=== PATIENT | male | born 1940 | race Caucasian/White ===

== ENCOUNTER → 2016-07-12 | Outpatient (CLI) | payer OTHER | END | disposition home or self-care (01) | LOC: PCVCCLINIC 09:40 | PROVIDERS: ATTEND Internal Medicine | DX: I25.10 Atherosclerotic heart disease of native coronary artery without angina pectoris (principal); I25.5 Ischemic cardiomyopathy; I10 Essential (primary) hypertension; E78.00 Pure hypercholesterolemia, unspecified; I47.2 Ventricular tachycardia; I48.91 Unspecified atrial fibrillation; I73.9 Peripheral vascular disease, unspecified | CPT/HCPCS: 80061; 93005; G0463 ==

== ENCOUNTER → 2017-01-13 | Outpatient (CLI) | payer OTHER ==
--- NOTE | 2017-01-13 10:20 | PCVCIMAG ---
APPROVED REPORT Study performed: 01/13/2017 08:51:01 EXAM: Comprehensive 2D, Doppler, and color-flow Echocardiogram Other Information Study Quality: Technically Limited Indications CAD Hypertension/HDD CABG, Defib, Sleep Apnea 2D Dimensions LVEF(%): 15.12 (>50%) IVSd: 12.36 (7-11mm)LVOT Diam: 26.93 (18-24mm) LVDd: 70.36 mm PWd: 8.18 (7-11mm) LVDs: 65.44 (25-40mm) Left Atrium: 52.01 (27-40mm) Aortic Root: 39.13 mm LV Single Plane 4CH: 13.08 % LV Single Plane 2CH: 28.18 %Aguilar's LVEF: 20.63 % Biplane EF: 24.1 % Volumes Left Atrial Volume (Systole) Single Plane 4CH: 53.25 mLSingle Plane 2CH: 61.19 mL LA ESV Index: 24.00 mL/m2 Aortic Valve AoV Peak Sebastián.: 1.22 m/s AO Peak Gr.: 5.97 mmHgLVOT Max P.93 mmHg LVOT Max V: 0.96 m/s ELIAS Vmax: 4.46 cm2 Mitral Valve E/A Ratio: 0.0 MV Decel. Time: 180.15 ms MV E Max Sebastián.: 0.62 m/s MV A Sebastián.: 0.00 m/s IVRT: 114.19 ms Tricuspid Valve TR Peak Sebastián.: 3.02 m/s TR Peak Gr.: 36.37 mmHg Left Ventricle The left ventricle is dilated. There is normal left ventricular wall thickness. Left ventricular ejection fraction is severely decreased. LVEF is 30-35%. Grade I diastolic dysfunction Right Ventricle The right ventricle is normal size. Pacemaker wire is noted. The right ventricular systolic function is normal. Atria The left atrium size is normal. The right atrium size is normal. Pacemaker wire is noted. Aortic Valve The aortic valve is normal in structure. No aortic regurgitation is present. There is no aortic valvular stenosis. Mitral Valve The mitral valve is normal in structure. Mild mitral valve regurgitation No evidence of mitral valve stenosis. Tricuspid Valve The tricuspid valve is normal in structure. There is no tricuspid valve regurgitation noted. Pulmonic Valve The pulmonary valve is normal in structure. There is no pulmonic valvular regurgitation. Great Vessels The aortic root is normal in size. IVC is normal in size and collapses with >50% inspiration Pericardium There is no pericardial effusion. <Conclusion> Left ventricular ejection fraction is severely decreased. LVEF is 30-35%. Grade I diastolic dysfunction The aortic valve is normal in structure. No aortic regurgitation or stenosis. The mitral valve is normal in structure. Mild mitral valve regurgitation Pulmonary artery pressure could not be reliably ascertained There is no pericardial effusion.
== END | disposition home or self-care (01) ==
LOC: PCVCIMAG 08:30
PROVIDERS: ATTEND Internal Medicine
DX: I34.0 Nonrheumatic mitral (valve) insufficiency (principal); I25.10 Atherosclerotic heart disease of native coronary artery without angina pectoris; I48.0 Paroxysmal atrial fibrillation; I47.2 Ventricular tachycardia; I73.9 Peripheral vascular disease, unspecified; I71.4 Abdominal aortic aneurysm, without rupture; Z95.1 Presence of aortocoronary bypass graft; Z87.891 Personal history of nicotine dependence; Z95.810 Presence of automatic (implantable) cardiac defibrillator; Z79.01 Long term (current) use of anticoagulants
CPT/HCPCS: 80061; 93005; 93306; G0463

== ENCOUNTER → 2017-07-21 | Outpatient (CLI) | payer OTHER | END | disposition home or self-care (01) | LOC: PCVCCLINIC 10:22 | DX: I25.10 Atherosclerotic heart disease of native coronary artery without angina pectoris (principal); I25.5 Ischemic cardiomyopathy; I47.2 Ventricular tachycardia; I48.0 Paroxysmal atrial fibrillation; E78.5 Hyperlipidemia, unspecified; G47.33 Obstructive sleep apnea (adult) (pediatric); Z79.01 Long term (current) use of anticoagulants; Z95.810 Presence of automatic (implantable) cardiac defibrillator; Z95.1 Presence of aortocoronary bypass graft; Z87.891 Personal history of nicotine dependence; Z79.899 Other long term (current) drug therapy | CPT/HCPCS: 80061; 93005; G0463 ==

== ENCOUNTER → 2017-12-02 | Outpatient (CLI) | payer OTHER | END | disposition home or self-care (01) | LOC: PCVCCLINIC 14:01 | DX: I25.10 Atherosclerotic heart disease of native coronary artery without angina pectoris (principal); I25.5 Ischemic cardiomyopathy; I47.2 Ventricular tachycardia; I48.0 Paroxysmal atrial fibrillation; E78.5 Hyperlipidemia, unspecified; G47.33 Obstructive sleep apnea (adult) (pediatric); Z79.01 Long term (current) use of anticoagulants; Z95.1 Presence of aortocoronary bypass graft; Z95.810 Presence of automatic (implantable) cardiac defibrillator; Z88.8 Allergy status to other drugs, medicaments and biological substances | CPT/HCPCS: 93005; G0463 ==

== ENCOUNTER → 2018-12-14 | Outpatient (CLI) | payer OTHER ==
[~2018-12-14] MED LIST: REGADENOSON 0.4 MG/5 ML DISP.SYRIN. IV ONE
--- NOTE | 2018-12-14 16:49 | PCVCIMAG ---
APPROVED REPORT Imaging Protocol: Rest Tc-99m/Stress Tc-99m 1 day Study performed: 12/14/2018 08:54:16 Indication: Atrial Fibrillation, CAD, ICM Patient Location: Out-Patient Stress Nurse: Melia Huntley RN, Holly Cordon RN DC Tech:Tena Mayfieldtierra [facility] Ht: 5 ft 9 in Wt: 230 lbs BSA: 2.19 m2 HR: 64 bpm BP: 120/75 mmHg BMI: 33.9 Rhythm: AV paced rhythm with PVC'S Medical History Medical History: Hyperlipidemia, HTN, P-Atrial Fibrillation Medications: Pradaxa, Lisinopril, Paxil, Prednisone, Sotalol (took this am) Torsemide Allergies: Statins Cardiac Risk Factors: Age Previous Cardiac Procedures: 1989 CABG Pretest Chest Pain Characteristics: No chest pain Exercise History: Sedentary Physical Disabilities: Weakness Resting Data Rest SPECT myocardial perfusion imaging was performed in supine position 45 minutes following the intravenous injection of 10.5 mCi of Tc-99m Sestamibi. Time of rest injection: 0900 Date: 12/14/2018 Administration Route: IV Administration Site: Right Hand Pharmacologic Stress Pharmacologic stress test was performed by injecting Regadenoson 0.4 mg IV push over 10-15 seconds immediately followed by the intravenous injection of 33.3 mCi of Tc-99m Sestamibi. Time of stress injection: 1030 Date: 12/14/2018 Administration Route: IV Administration Site: Right Hand Gated Stress SPECT was performed 45 minutes after stress injection. The images were gated to evaluate regional wall motion and calculate left ventricular ejection fraction. Stress Test Details Stress Test: Pharmacologic stress testing performed using 0.4 mg of regadenoson per 5 mL given IV over 10 seconds. Reason for pharmacologic stress test: general weakness. HRMax Heart Rate (APMHR): 143 bpm Resting HR: 64 bpmTarget HR (85% APMHR): 121 bpm Max HR Achieved: 73 bpm % of APMHR: 51 Recovery HR: 62 bpm BP Resting BP: 120/75 mmHg Max BP: 121/75 mmHg Recovery BP: 118/65 mmHg ECG Resting ECG: Sinus Rhythm, LAFB, RBBB Stress ECG: Sinus Rhythm, LAFB, RBBB ST Change: None Maximum ST Deviation: 0 mm Arrhythmia: PVC'S Recovery ECG: Sinus Rhythm, LAFB, RBBB Recovery ST Change: Sinus Rhythm, LAFB, RBBB Recovery ST Deviation: 0 mm Recovery Arrhythmia: VPC Clinical Reason for Termination: Completed protocol Stress Symptoms: None Stress ECG Conclusion ECG: Non-ischemic Clinical: Non-ischemic Study Quality Study: Good Study Data Post stress, the left ventricular ejection was 25%.. SSS: 19 SRS: 24 SDS: 0 TID = 0.96. Perfusion No evidence of stress induced ischemia. 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 Wall Motion Severely decreased left ventricular systolic function. Nuclear Conclusion No evidence of stress induced ischemia. 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 Post stress, the left ventricular ejection was 25%.. No change since prior study dated December 2014. Interpreted by: Tarik Chapman MD Electronically Approved: 12/14/2018 16:41:32 <Conclusion> ECG: Non-ischemic Clinical: Non-ischemic
== END | disposition home or self-care (01) ==
LOC: PCVCIMAG 08:22
PROVIDERS: ATTEND Internal Medicine
DX: I25.10 Atherosclerotic heart disease of native coronary artery without angina pectoris (principal); I25.5 Ischemic cardiomyopathy; I48.0 Paroxysmal atrial fibrillation
CPT/HCPCS: 78452; 93017; A9500; J2785